=== PATIENT | male | born 1960 | race Caucasian/White ===

== ENCOUNTER 2016-08-27 15:38 | Emergency (ER) | payer BC ==
[2016-08-27] MEDS ORDERED: Ondansetron INJ* 2 MG/ML VIAL IV ONE (18:14)
[2016-08-27] MEDS ORDERED: NS 0.9% 1000 ML* 2,000 ML IV ONE (18:14)
[2016-08-27 18:35] LABS: Hematocrit 46 % (42-52); Hemoglobin 15.6 g/dl (14.0-18.0); Mean Corpuscular HGB Conc 34 g/dl (31-36); Mean Corpuscular Hemoglobin 29 pg (27-31); Mean Corpuscular Volume 86 fL (80-94); Mean Platelet Volume 8 um3 (7.4-10.4); Red Blood Count 5.35 10^6/ul (4.0-5.4); Red Cell Distribution Width 15 % (10.5-15); White Blood Count 17.1 10^3/ul (3.5-10.8)
[2016-08-27 18:38] LABS: Budding Yeast Present (Absent); Urine Bacteria Absent (Absent); Urine Bilirubin Negative (Negative); Urine Glucose Negative (Negative); Urine Nitrite Negative (Negative); Urine Sperm Present (Absent)
[2016-08-27] MEDS ORDERED: HYDROmorphone* 1 MG/ML 1 ML SYR IV SLOW PU ONE (18:40)
[2016-08-27] MEDS ORDERED: Ketorolac INJ* 30 MG/ML 1 ML VIAL IV PUSH ONE (18:41)
[2016-08-27 18:54] LABS: Albumin 4.4 g/dL (3.2-5.2); BUN/Creatinine Ratio 14.6 (8-20); C Reactive Protein 6.57 mg/L (< 5.00); Calcium 9.9 mg/dL (8.6-10.3); EGFR African American 69.4 (>60); EGFR Non-African American 53.9 (>60); Globulin 3.3 g/dL (2-4); Potassium 4.3 mmol/L (3.5-5.0); Total Bilirubin 1.7 mg/dL (0.2-1.0); Total Protein 7.7 g/dL (6.4-8.9)
[2016-08-27 18:56] LABS: Troponin I 0.01 ng/mL (<0.04)
--- NOTE | 2016-08-27 19:39 | RAD ---
INDICATION: Right flank pain COMPARISON: None TECHNIQUE: Noncontrast axial source images were acquired from the level hemidiaphragms to the symphysis pubis as part of CT imaging for renal stone. Lung bases: The lung bases are clear. Liver: The liver is enlarged with findings of hepatic steatosis. Noncontrast imaging shows no evidence of a hepatic mass or ductal dilatation. Gallbladder: There are no calcified gallstones. There is no evidence of wall thickening or pericholecystic fluid.. Spleen: The spleen is normal in size. The noncontrast CT appearance is normal. Pancreas: Noncontrast imaging shows no pancreatic mass or ductal dilitation. Adrenal glands: No masses are identified. Kidneys/Bladder: Left kidney is unremarkable. There is moderate right-sided hydronephrosis and proximal hydroureter with perinephric stranding. There is a 4 mm calculus in the distal right ureter. There is a nonobstructive 2 mm lower pole right renal calculus. There is probably a tiny right renal cyst there is subcentimeter in size and incompletely characterized on this examination. The bladder is unremarkable. Adenopathy: There is no evidence of intraperitoneal or retroperitoneal adenopathy. Evaluation is limited without oral contrast. Fluid collections: There are no free or localized fluid collections. Vessels: The aorta and iliac vessels are normal in caliber. There are no significant atherosclerotic changes. The IVC appears normal Pelvic organs: The uterus and adnexa appear normal GI tract: Evaluation of the bowel is limited without oral contrast. The stomach, small bowel, and lower GI tract appear grossly normal. There are no obstructive findings. Soft tissues: No soft tissue abnormalities of the extraperitoneal abdomen or pelvis are identified. Osseous structures: There are no acute osseous findings. IMPRESSION: RIGHT-SIDED NEPHROLITHIASIS. OBSTRUCTIVE DISTAL RIGHT URETEROLITHIASIS.
[2016-08-27] MEDS ORDERED: Ondansetron ODT TAB* 4 MG PO ONE (20:07)
[2016-08-27] MEDS ORDERED: Tamsulosin CAP* 0.4 MG PO ONE (20:07)
[2016-08-27] MEDS ORDERED: oxyCODONE/Acetamin 5/325 MG* TAB PO ONE (20:09)
[2016-08-27 21:29] VITALS: BP 133/75
--- NOTE | 2016-08-27 21:44 | ED ---
Robel Shine Alfonso, scribed for Aashish Jimenez MD on 08/27/16 at 1901 . Abdominal Pain/Male - HPI Summary HPI Summary: This patient is a 56 year old male presenting to [facility] c/o sharp right-sided flank and RLQ abdominal pain since 1300 today. He states his worsening pain feels like when I had a kidney stone I had 11 months ago. He rates the pain 7/ 10 in severity. Sx aggravated by movement and alleviated by nothing. He reports vomiting, diaphoresis, and chills. Denies abdominal PSHx. - History of Current Complaint Chief Complaint: EDAbdPain Stated Complaint: ABD PAIN Time Seen by Provider: 08/27/16 18:04 Hx Obtained From: Patient Onset/Duration: Sudden Onset, Lasting Hours - Since 1300 today, Worse Since Timing: Constant Severity Initially: Moderate Severity Currently: Moderate Pain Intensity: 7 Pain Scale Used: 0-10 Numeric Location: Discrete At: RLQ, Flank - Right-sided Character: Sharp Aggravating Factor(s): Movement Alleviating Factor(s): Nothing Associated Signs And Symptoms: Positive: Diaphoresis, Vomiting, Other - Positive chills; - Allergies/Home Medications Allergies/Adverse Reactions: Allergies Allergy/AdvReac Type Severity Reaction Status Date / Time No Known Allergies Allergy Verified 04/21/16 13:25 PMH/Surg Hx/FS Hx/Imm Hx Opthamlomology History: Denies: Hx Legally Blind EENT History: Denies: Hx Deafness Infectious Disease History: No Infectious Disease History: Denies: Traveled Outside the [place] in Last 30 Days - Family History Known Family History: Positive: Diabetes - Social History Alcohol Use: Rare Hx Substance Use: No Hx Tobacco Use: No Review of Systems Positive: Chills, Skin Diaphoresis Positive: Abdominal Pain - right-sided flank and RLQ abdominal pain , Vomiting All Other Systems Reviewed And Are Negative: Yes Physical Exam - Summary Physical Exam Summary: The patient is well-nourished in mild distress and in no acute pain. The skin is warm, diaphoretic, and pale. HEENT: The head is normocephalic and atraumatic. The pupils are equal and reactive. The conjunctivae are clear and without drainage. Nares are patent and without drainage. Mouth reveals moist mucous membranes and the throat is without erythema and exudate. The external ears are intact. The ear canals are patent and without drainage. The tympanic membranes are intact. Neck is supple with full range of motion and non-tender. There are no carotid bruits. There is no neck vein distension. Respiratory: Chest is non-tender. Lungs are clear to auscultation and breath sounds are symmetrical and equal. Cardiovascular: Heart is regular rate and rhythm. There is no murmur or rub auscultated. There is no peripheral edema and pulses are symmetrical and equal. Abdomen: The abdomen is soft and non-tender. There are normal bowel sounds heard in all four quadrants and there is no organomegaly palpated. No CVA tenderness. Musculoskeletal: There is no back pain noted. Extremities are non-tender with full range of motion. There is good capillary refill. There is no peripheral edema or calf tenderness elicited. Neurological: Patient is alert and oriented to person, place and time. The patient has symmetrical motor strength in all four extremities. Cranial nerves are grossly intact. Deep tendon reflexes are symmetrical and equal in all four extremities. Psychiatric: The patient has an appropriate affect and does not exhibit any anxiety or depression. Triage Information Reviewed: Yes Vital Signs On Initial Exam: Initial Vitals Temp Pulse Resp BP Pulse Ox 97 F 73 17 159/95 97 08/27/16 15:42 08/27/16 15:42 08/27/16 15:42 08/27/16 15:42 08/27/16 15:42 Vital Signs Reviewed: Yes Diagnostics - Vital Signs Vital Signs Temp Pulse Resp BP Pulse Ox 08/27/16 17:16 97.8 F 84 17 156/92 94 08/27/16 15:42 97 F 73 17 159/95 97 - Laboratory Lab Results: Lab Results 08/27/16 08/27/16 08/27/16 Range/Units 18:24 18:24 18:24 WBC 17.1 H (3.5-10.8) 10^3/ul RBC 5.35 (4.0-5.4) 10^6/ul Hgb 15.6 (14.0-18.0) g/dl Hct 46 (42-52) % MCV 86 (80-94) fL MCH 29 (27-31) pg MCHC 34 (31-36) g/dl RDW 15 (10.5-15) % Plt Count 201 (150-450) 10^3/ul MPV 8 (7.4-10.4) um3 Neut % (Auto) 83.2 H (38-83) % Lymph % (Auto) 10.2 L (25-47) % [place] % (Auto) 5.8 (1-9) % Eos % (Auto) 0.2 (0-6) % Baso % (Auto) 0.6 (0-2) % Absolute Neuts (auto) 14.2 H (1.5-7.7) 10^3/ul Absolute Lymphs (auto) 1.7 (1.0-4.8) 10^3/ul Absolute Monos (auto) 1.0 H (0-0.8) 10^3/ul Absolute Eos (auto) 0 (0-0.6) 10^3/ul Absolute Basos (auto) 0.1 (0-0.2) 10^3/ul Absolute Nucleated RBC 0 10^3/ul Nucleated RBC % 0 Sodium 138 (133-145) mmol/L Potassium 4.3 (3.5-5.0) mmol/L Chloride 100 L (101-111) mmol/L Carbon Dioxide 24 (22-32) mmol/L Anion Gap 14 H (2-11) mmol/L BUN 20 (6-24) mg/dL Creatinine 1.37 H (0.67-1.17) mg/dL Est GFR ( Amer) 69.4 (>60) Est GFR (Non-Af Amer) 53.9 (>60) BUN/Creatinine Ratio 14.6 (8-20) Glucose 168 H (70-100) mg/dL Lactic Acid 3.1 H* (0.5-2.0) mmol/L Calcium 9.9 (8.6-10.3) mg/dL Total Bilirubin 1.70 H (0.2-1.0) mg/dL AST 25 (13-39) U/L ALT 24 (7-52) U/L Alkaline Phosphatase 45 (34-104) U/L Troponin I 0.01 (<0.04) ng/mL C-Reactive Protein 6.57 H (< 5.00) mg/L Total Protein 7.7 (6.4-8.9) g/dL Albumin 4.4 (3.2-5.2) g/dL Globulin 3.3 (2-4) g/dL Albumin/Globulin Ratio 1.3 (1-3) Lipase 23 (11.0-82.0) U/L Urine Color Urine Appearance Urine pH (5-9) Ur Specific [place] (1.010-1.030) Urine Protein (Negative) Urine Ketones (Negative) Urine Blood (Negative) Urine Nitrate (Negative) Urine Bilirubin (Negative) Urine Urobilinogen (Negative) Ur Leukocyte Esterase (Negative) Urine WBC (Auto) (Absent) Urine RBC (Auto) (Absent) Urine Bacteria (Absent) Urine Yeast (Absent) Urine Sperm (Absent) Urine Glucose (Negative) Urine Ascorbic Acid (Negative) 08/27/16 Range/Units 18:25 WBC (3.5-10.8) 10^3/ul RBC (4.0-5.4) 10^6/ul Hgb (14.0-18.0) g/dl Hct (42-52) % MCV (80-94) fL MCH (27-31) pg MCHC (31-36) g/dl RDW (10.5-15) % Plt Count (150-450) 10^3/ul MPV (7.4-10.4) um3 Neut % (Auto) (38-83) % Lymph % (Auto) (25-47) % [place] % (Auto) (1-9) % Eos % (Auto) (0-6) % Baso % (Auto) (0-2) % Absolute Neuts (auto) (1.5-7.7) 10^3/ul Absolute Lymphs (auto) (1.0-4.8) 10^3/ul Absolute Monos (auto) (0-0.8) 10^3/ul Absolute Eos (auto) (0-0.6) 10^3/ul Absolute Basos (auto) (0-0.2) 10^3/ul Absolute Nucleated RBC 10^3/ul Nucleated RBC % Sodium (133-145) mmol/L Potassium (3.5-5.0) mmol/L Chloride (101-111) mmol/L Carbon Dioxide (22-32) mmol/L Anion Gap (2-11) mmol/L BUN (6-24) mg/dL Creatinine (0.67-1.17) mg/dL Est GFR ( Amer) (>60) Est GFR (Non-Af Amer) (>60) BUN/Creatinine Ratio (8-20) Glucose (70-100) mg/dL Lactic Acid (0.5-2.0) mmol/L Calcium (8.6-10.3) mg/dL Total Bilirubin (0.2-1.0) mg/dL AST (13-39) U/L ALT (7-52) U/L Alkaline Phosphatase (34-104) U/L Troponin I (<0.04) ng/mL C-Reactive Protein (< 5.00) mg/L Total Protein (6.4-8.9) g/dL Albumin (3.2-5.2) g/dL Globulin (2-4) g/dL Albumin/Globulin Ratio (1-3) Lipase (11.0-82.0) U/L Urine Color Yellow Urine Appearance Cloudy Urine pH 5.0 (5-9) Ur Specific [place] 1.021 (1.010-1.030) Urine Protein Negative (Negative) Urine Ketones 1+ H (Negative) Urine Blood 3+ H (Negative) Urine Nitrate Negative (Negative) Urine Bilirubin Negative (Negative) Urine Urobilinogen Negative (Negative) Ur Leukocyte Esterase Negative (Negative) Urine WBC (Auto) Trace(0-5/hpf) (Absent) Urine RBC (Auto) 3+(>10/hpf) H (Absent) Urine Bacteria Absent (Absent) Urine Yeast Present H (Absent) Urine Sperm Present H (Absent) Urine Glucose Negative (Negative) Urine Ascorbic Acid * H (Negative) Result Diagrams: 08/27/16 18:24 08/27/16 18:24 Lab Statement: Any lab studies that have been ordered have been reviewed, and results considered in the medical decision making process. - CT CT A/P CT Interpretation Completed By: Radiologist - [address] [place] [address] Abdominal Pain Fem Course/Dx - Course Assessment/Plan: A 56-year-old M presents to the ED with a CC of sharp right- sided flank and RLQ abdominal pain since 1300 today. He reports vomiting, diaphoresis, and chills. A CT A/P reveals RIGHT-SIDED NEPHROLITHIASIS. OBSTRUCTIVE DISTAL RIGHT URETEROLITHIASIS. Patient will be discharged with follow up from Dr. Osorio (urologist) and Dr. Garcia (PCP). Pt is agreeable with this plan. - Diagnoses Differential Diagnosis/HQI/PQRI: Ureteral Stone, Urinary Tract Infection Provider Diagnoses: Right ureteral calculus, Hydronephrosis Discharge - Discharge Plan Condition: Stable Disposition: HOME Prescriptions: Ondansetron ODT TAB* [Zofran 4 MG Odt TAB*] 4 mg PO Q8H PRN #10 tab.odt PRN Reason: Nausea Tamsulosin CAP* [Flomax CAP*] 0.4 mg PO DAILY #7 cap oxyCODONE/Acetamin 5/325 MG* [Percocet 5/325 TAB*] 1 tab PO Q6H PRN #20 tab MDD 4 PRN Reason: pain Patient Education Materials: Kidney Stones (ED) Referrals: Sebas Garcia DO [Primary Care Provider] - 7 Days Ovidio Osorio [Other] - 3 Days (Urology) The documentation as recorded by the Robel gonzalez Alfonso accurately reflects the service I personally performed and the decisions made by , Aashish Jimenez MD.
== END 2016-08-27 21:28 | disposition home or self-care (01) ==
LOC: ED 15:38
DX: N13.2 Hydronephrosis with renal and ureteral calculous obstruction (principal); R11.10 Vomiting, unspecified; R10.84 Generalized abdominal pain
CPT/HCPCS: 36415; 74176; 80053; 81003; 81015; 83605; 83690; 84484; 85025; 86140; 96374; 96375; 99284; A9270-GY; J1170; J1885; J2405

== ENCOUNTER 2020-04-20 13:14 | Inpatient (IN) ==
[2020-04-20] MEDS ORDERED: NS 0.9% 1000 ml BAG 1,000 ML IV ONE ×2 (13:20→14:20)
[2020-04-20 13:54] LABS: ABS Lymphocytes 1.2 10^3/ul (1.0-4.8); ABS Monocytes 0.5 10^3/ul (0-0.8); ABS Neutrophils 5.8 10^3/ul (1.5-7.7); Eosinophil % 0.4 %; Hematocrit 47 % (42-52); Hemoglobin 15.8 g/dL (14.0-18.0); Lymphocyte % 16.2 %; Mean Corpuscular HGB Conc 34 g/dL (31-36); Mean Corpuscular Hemoglobin 29 pg (27-31); Mean Corpuscular Volume 87 fL (80-94); Mean Platelet Volume 8.6 fL (7.4-10.4); Platelet Count 206 10^3/uL (150-450); Red Cell Distribution Width 14 % (10-15); White Blood Count 7.6 10^3/uL (3.5-10.8)
[2020-04-20 14:02] LABS: Activated Partial Thrombo Time 31.8 seconds (26.0-38.0); INR 1.1 (0.82-1.09)
[2020-04-20 14:08] LABS: Albumin 4.1 g/dL (3.2-5.2); Albumin/Globulin Ratio 1.2 (1-3); BUN/Creatinine Ratio 15.4 (8-20); Calcium 9.2 mg/dL (8.6-10.3); EGFR African American 103.5 (>60); EGFR Non-African American 85.6 (>60); Globulin 3.3 g/dL (2-4); HDL Cholesterol 32.8 mg/dL; Potassium 3.9 mmol/L (3.5-5.0); Total Bilirubin 1.7 mg/dL (0.2-1.0); Total Protein 7.4 g/dL (6.4-8.9)
[2020-04-20] MEDS ORDERED: Iodixanol (CONTRAST) 320 MG/ML 100 ML SDV IV ONE (14:10)
[2020-04-20 16:04] LABS: Urine Appearance Clear; Urine Bilirubin Negative (Negative); Urine Blood Negative (Negative); Urine Color Yellow; Urine Glucose 3+(>=500 mg/dL) (Negative); Urine Ketones 2+ (Negative); Urine Nitrite Negative (Negative); Urine Protein 1+(30 mg/dL) (Negative); Urine Urobilinogen Negative (Negative)
[2020-04-20 16:19] LABS: Urine Bacteria Absent (Absent); Urine Red Blood Cell Trace(0-2/hpf) (Absent); Urine Squamous Epithelial Cell Present (Absent); Urine White Blood Cell Absent (Absent)
[2020-04-20 16:20] LABS: Urine Specific Gravity > 1.030 (1.010-1.030)
[2020-04-20] MEDS ORDERED: Ondansetron 4 mg VIAL 2 MG/ML 2 ml VIAL IV PRN (17:08)
[2020-04-20] MEDS ORDERED: Dextrose 50% Syringe 50 ml 25 GM/50 ML SYRINGE IV PUSH PRN (17:14)
[2020-04-20] MEDS ORDERED: Enoxaparin 40 MG/0.4 ML SYR SUBCUT SCH ×2 (18:00→21:00)
[2020-04-20] MEDS: NS 0.9% 1000 ml BAG 1,000 ML IV SCH (21:16)
[2020-04-20] MEDS ORDERED: NS 0.9% IVPB SCH (22:00)
[2020-04-20] MEDS ORDERED: ACYCLOVIR IVPB SCH (22:00)
[2020-04-20] MEDS: Acyclovir IV 600 MG in NS 0.9% 100 ml BAG 100 ML IVPB SCH (22:14)
[2020-04-21 03:35] LABS: Albumin 3.6 g/dL (3.2-5.2); Albumin/Globulin Ratio 1.5 (1-3); BUN/Creatinine Ratio 19.2 (8-20); Calcium 8.2 mg/dL (8.6-10.3); EGFR African American 123.7 (>60); EGFR Non-African American 102.2 (>60); Globulin 2.4 g/dL (2-4); HDL Cholesterol 27.2 mg/dL; Potassium 3.5 mmol/L (3.5-5.0); Total Bilirubin 1.5 mg/dL (0.2-1.0)
[2020-04-21] MEDS: Acyclovir IV 600 MG in NS 0.9% 100 ml BAG 100 ML IVPB SCH ×2 (04:39→12:16)
[2020-04-21] MEDS: NS 0.9% 1000 ml BAG 1,000 ML IV SCH (08:08)
[2020-04-21] MEDS ORDERED: Perflutren Lipid Microsphere 3 ML VIAL ONE (08:18)
[2020-04-21 11:07] VITALS: BP 162/95
== END 2020-04-21 14:00 | disposition home or self-care (01) | DRG 45 ==
LOC: MEDTELE 13:14 → ED 13:14 → OBSVTOIN 17:08
PROVIDERS: ADMIT Internal Medicine; ATTEND Internal Medicine